=== PATIENT | female | born 2000 | race American Indian/Alaskan Native ===

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

== ENCOUNTER 2021-02-10 21:04 | Emergency (ER) | payer MEDICAID, SELFPAY ==
[2021-02-10 21:10] VITALS: BP 117/58; PULSE 78; RESP 20; TEMP 36.3; O2SAT 97
--- NOTE | 2021-02-10 21:15 | DI.RAD.S_ITS ---
PROCEDURE: XR CHEST 2V INDICATIONS: chest pain, short of breath TECHNIQUE: 2 views of the chest were acquired. COMPARISON: [facility], , CHEST 2 VIEW, 12/30/2014, 20:55. FINDINGS: Surgical changes and devices: None. Lungs and pleura: Lungs are clear. No pleural effusions or pneumothorax. Mediastinum: Mediastinal contours are normal. Heart size is normal. Bones and chest wall: No suspicious bony abnormalities. Soft tissues appear unremarkable. IMPRESSION: No acute cardiopulmonary abnormality. Dictated by: Walter Weinstein M.D. on 02/10/2021 at 21:51 Approved by: Walter Weinstein M.D. on 02/10/2021 at 21:51
[2021-02-10 22:43] LABS: D Dimer 231 ng/mL (<230)
[2021-02-10 22:44] LABS: BUN Creatinine Ratio 16.4 (6-22); Blood Urea Nitrogen 11 mg/dL (7-17); Calcium 8.7 mg/dL (8.4-10.2); Carbon Dioxide 27 mmol/L (22-32); Chloride 104 mmol/L (98-107); Estimated Glomerular Filt Rate > 60.0 mL/min (>60); Glucose 99 mg/dL (70-100); HEMOLYSIS < 15 (0-50); Potassium 3.9 mmol/L (3.4-5.1); Sodium 137 mmol/L (137-145)
[2021-02-10 22:47] LABS: Add Manual Diff / Slide Review NO; Basophils Absolute Auto 0 /uL (0-100); Basophils Percent Auto 0.8 % (0-2); Eosinophils Absolute Auto 100 /uL (0-450); Eosinophils Percent Auto 2.1 % (2-4); Hematocrit 29.6 % (36-46); Hemoglobin 9.5 g/dL (12.0-16.0); Lymphocytes Absolute Auto 2100 /uL (1100-4500); Lymphocytes Percent Auto 35.6 % (25-40); Mean Corpuscular HGB Conc 32.2 % (30-36); Mean Corpuscular Hemoglobin 23.4 PG (26-34); Mean Corpuscular Volume 72.8 fL (80-100); Monocytes Absolute Auto 400 /uL (0-900); Monocytes Percent Auto 6.3 % (3-14); Neutrophils Absolute Auto 3200 /uL (1500-7000); Neutrophils Percent Auto 55.2 % (50-75); Platelet Count 432 X10^3/uL (150-400); Red Blood Cell Count 4.07 X10^6/uL (4.0-5.2); Red Cell Distribution Width 16.2 % (11.6-14.8); White Blood Cell Count 5.8 X10^3/uL (4.5-11.0)
[2021-02-10] MEDS: KETOROLAC 60 MG/2 ML VIAL 30 MG IM (23:09)
--- NOTE | 2021-02-10 23:11 | ED.CHESTPAIN ---
HPI - Chest Pain General Chief Complaint: Chest Pain Stated Complaint: right sided pain Time Seen by Provider: 02/10/21 21:12 Source: patient Mode of arrival: Ambulatory Limitations: no limitations History of Present Illness HPI narrative: 20-year-old female smoker with noncontributory medical history otherwise presents with a chief complaint of sharp and stabbing reproducible right-sided chest wall pain that has been present for the past few days. She denies any specific injury or overuse. She denies any cough, fever or chills. She states that she is slightly short of breath but feels like it is only because it hurts to breathe. She does not use control, has no history of blood clot or cancer but did recently travel from here to [place] and back. She denies any abdominal pain, nausea or vomiting. She denies any dysuria, frequency or urgency. She has no vaginal bleeding or discharge MD complaint: chest pain Onset (ago): day(s) Duration: intermittent Pain location: right chest Severity: moderate Quality: sharp Pain radiation: none Relieving factors: rest Exacerbating factors: inspiration Treatments prior to arrival chest pain: none Related Data On Oral Contraceptives: No Previous Rx's Medication Instructions Recorded ketorolac 10 mg PO Q6H PRN #14 tab 02/10/21 Allergies Allergy/AdvReac Type Severity Reaction Status Date / Time No Known Allergies Allergy Uncoded 12/10/19 11:30 Review of Systems Constitutional Constitutional: Denies chills, Denies fatigue, Denies fever(s), Denies frequent falls, Denies lethargy and Denies weakness Eyes Eyes: Denies change in vision, Denies eye discharge, Denies irritation and Denies loss of vision ENT Ears, Nose, Mouth, and Throat: Denies change in voice, Denies dizziness, Denies neck pain, Denies sore throat and Denies throat swelling Cardiovascular Cardiovascular: Reports chest pain, Denies irregular heart rhythm, Denies lightheadedness, Denies palpitations, Denies dyspnea, Denies dyspnea on exertion and Denies orthopnea Respiratory Respiratory: Denies cough, Denies dyspnea, Denies dyspnea on exertion and Denies wheezing Gastrointestinal Gastrointestinal: Denies abdominal pain, Denies change in bowel habits, Denies diarrhea, Denies nausea and Denies vomiting Musculoskeletal Musculoskeletal: Denies neck pain and Denies numbness Integumentary/Breasts Skin/Breast: Denies pruritus, Denies erythema, Denies rash and Denies wounds Neurologic Neurologic: Denies behavioral changes, Denies confusion, Denies dizziness, Denies frequent falls, Denies loss of vision, Denies numbness and Denies weakness Psychiatric Psychiatric: Denies anxiety, Denies behavioral changes, Denies confusion, Denies depression, Denies homicidal ideation and Denies suicidal ideation Endocrine Endocrine: Denies fatigue, Denies flushing and Denies palpitations Hematologic/Lymphatic Hematologic/Lymphatic: Denies easy bruising Allergic/Immunologic Allergic/Immunologic: Denies urticaria, Denies throat swelling and Denies wheezing Patient History Medical History Anemia Chlamydia Healthy child HSV-1 infection Family History Grandmother Type 2 diabetes mellitus Social History Smoking Status: Never smoker substance use type: former substance user Smoking Status: Never smoker Substance Use Type: does not use Exam Narrative Exam Narrative: GENERAL: [20] year old patient appears stated age. Well-nourished, well-developed patient, in mild distress. HEAD: Atraumatic. Normocephalic. EYES: Pupils equal round and reactive. Extraocular motions intact. No scleral icterus. No injection or drainage. ENT: Nose without bleeding, purulent drainage. Throat without erythema, tonsillar hypertrophy or exudate. Airway patent. NECK: Trachea midline. Non tender CARDIOVASCULAR: Regular rate and rhythm without murmurs, gallops, or rubs. Right lateral ribs tender to palpation, no subcu emphysema or crepitance RESPIRATORY: Clear to auscultation. Breath sounds equal bilaterally. No wheezes, rales, or rhonchi. GASTROINTESTINAL: Abdomen soft, non-tender, nondistended. EXTREMITIES: No edema or joint tenderness. BACK: Nontender without deformity or crepitance. No flank tenderness. No CVA tenderness NEURO: AOx3. SKIN: No rash or erythema of visible areas Initial Vital Signs Initial Vital Signs: Vital Signs Temperature 97.4 F L 02/10/21 21:10 Pulse Rate 78 02/10/21 21:10 Respiratory Rate 20 02/10/21 21:10 Blood Pressure 117/58 L 02/10/21 21:10 Pulse Oximetry 97 02/10/21 21:10 Course Orders Ordered: ED Orders 02/10/21 22:25 Basic Metabolic Panel Stat Complete Blood Count AUTO DIFF Stat D Dimer Stat Discontinued Medications Ketorolac Tromethamine (Ketorolac 60 Mg/2 Ml Vial) 30 mg IM NOW ONE Stop: 02/10/21 23:04 Last Admin: 02/10/21 23:09 Dose: 30 mg Documented by: LAWRENCE Vital Signs Vital signs: Vital Signs - 8 hr 02/10/21 21:10 Temperature 97.4 F L Pulse Rate 78 Respiratory Rate 20 Blood Pressure 117/58 L Pulse Oximetry 97 MDM - Chest Pain Lab Data Result diagrams: 02/10/21 22:25 02/10/21 22:25 Labs: Lab Results 02/10/21 02/10/21 02/10/21 Range/Units 22:25 22:25 22:25 WBC 5.8 (4.5-11.0) X10^3/uL RBC 4.07 (4.0-5.2) X10^6/uL Hgb 9.5 L (12.0-16.0) g/dL Hct 29.6 L (36-46) % MCV 72.8 L (80-100) fL MCH 23.4 L (26-34) PG MCHC 32.2 (30-36) % RDW 16.2 H (11.6-14.8) % Plt Count 432 H (150-400) X10^3/uL Neut % (Auto) 55.2 (50-75) % Lymph % (Auto) 35.6 (25-40) % [place] % (Auto) 6.3 (3-14) % Eos % (Auto) 2.1 (2-4) % Baso % (Auto) 0.8 (0-2) % Neut # (Auto) 3200 (6585-8939) /uL Lymph # (Auto) 2100 (4755-3914) /uL [place] # (Auto) 400 (0-900) /uL Eos # (Auto) 100 (0-450) /uL Baso # (Auto) 0 (0-100) /uL D-Dimer 231 H (<230) ng/mL Sodium 137 (137-145) mmol/L Potassium 3.9 (3.4-5.1) mmol/L Chloride 104 (98-107) mmol/L Carbon Dioxide 27 (22-32) mmol/L BUN 11 (7-17) mg/dL Creatinine 0.67 (0.52-1.04) mg/dL Estimated GFR > 60.0 (>60) mL/min BUN/Creatinine Ratio 16.4 (6-22) Glucose 99 (70-100) mg/dL Calcium 8.7 (8.4-10.2) mg/dL Point of Care Testing Test Results Negative Urine Dip Bedside Urine Glucose Negative Bedside Urine Bilirubin - Negative Bedside Urine Ketone - Negative Urine Specific [place] 1.030 Bedside Urine Occult Blood - Negative Bedside Urine pH 6 Bedside Urine Protein - Negative Bedside Urine Urobilinogen - Negative Bedside Urine Nitrite - Negative Bedside Urine Leukocytes - Negative Esterase Imaging Data Chest x-ray: Radiologist's Impression: Kimberli Easley 20 F [address] [id number] ReportSigned Patient: Kimberli Easley AMR#: [id number]: 2000Acct:[id number]/Sex: 20 / FDate of Service: 02/10/21Loc: EDAccession Number: [id number] Procedure: XR chest 2V Ordering Provider: Bay Brand D.O. PROCEDURE: XR CHEST 2V INDICATIONS: chest pain, short of breath TECHNIQUE: 2 views of the chest were acquired. COMPARISON: [facility], CHEST 2 VIEW, 12/30/2014, 20:55. FINDINGS: Surgical changes and devices: None. Lungs and pleura: Lungs are clear. No pleural effusions or pneumothorax. Mediastinum: Mediastinal contours are normal. Heart size is normal. Bones and chest wall: No suspicious bony abnormalities. Soft tissues appear unremarkable. IMPRESSION: No acute cardiopulmonary abnormality. Dictated by: Walter Weinstein M.D. on 02/10/2021 at 21:51 Approved by: Walter Weinstein M.D. on 02/10/2021 at 21:51 [facility] Narrative Medical decision making narrative: Multiple causes of chest pain considered including [place], PE, pneumothorax, pneumonia, aortic dissection, and pleurisy. Patient reports no radiation, no diaphoresis, no provocation with exertion, and no vomiting. Pulmonary embolism considered given recent travel and history of smoking, however D-dimer is below cutoff and no CTA is indicated. Pain is rather clearly on the ribs but general urinary symptoms such as hydronephrosis, pyelonephritis is considered but thought unlikely given remainder history, physical and labs Patient's symptoms improved over duration of stay with above-stated therapies. Findings and discharge diagnosis discussed with patient/family followed by verbalization of understanding Return precautions discussed with patient/family whom verbalize understanding. Discharge Plan Departure Patient Disposition: Home Clinical Impression: Acute chest wall pain Instructions: DI for Atypical Chest Pain Activity Restrictions/Additional Instructions: *You have been diagnosed with [chest wall pain. Chest x-ray and lab work are very reassuring.] *What to do: *Take medications as directed *Follow up with your primary care provider in 2-3 days, call for an appointment. Let them know you were seen in the Emergency Department and that we ask that you be seen in follow up *Return to ER if you should have any new, worsening or concerning symptoms, such as [increasing pain, shortness of breath, passing out, fever greater than 101 F or other bothersome symptoms] Prescriptions: New ketorolac 10 mg tablet 10 mg PO Q6H PRN (Reason: pain) Qty: 14 RF: 0
== END 2021-02-10 23:21 | disposition home or self-care (01) ==
PROVIDERS: Emergency Provider Emergency Medicine
DX: R07.89 Other chest pain (principal)
CPT/HCPCS: 36415; 71046; 80048; 81003; 81025; 85025; 85379; 96372; 99283; 99284; J1885

== ENCOUNTER 2023-04-20 02:00 | Emergency (ER) | payer MEDICAID, SELFPAY ==
[2023-04-20 02:03] VITALS: BP 109/56; PULSE 80; RESP 16; TEMP 36.8; O2SAT 99; BMI 19.7
--- NOTE | 2023-04-20 02:37 | ED_ITS ---
HPI - Skin/Abscess/Foreign Bdy General Chief complaint: Skin/Abscess/Foreign Body Stated complaint: removed breast piercing now swollen and hurts Time Seen by Provider: 04/20/23 02:36 Source: patient Mode of arrival: Family Vehicle Limitations: no limitations History of Present Illness HPI narrative: This is a 18-year-old female with prior history of drug use who presents with left breast pain, redness and swelling. Patient states she removed her nipple piercings about 2 days ago when she started noticing some redness and irritation. She states it has been increasing and there is now some swelling it is become quite tender. No drainage. She denies fevers or chills. She denies pain elsewhere, no nausea or vomiting, no difficulty breathing. No diarrhea constipation, no urinary symptoms. She states she would 1 prior episode where he got swollen and red she left the piercing in an it resolved without much intervention. Patient states no daily medications. She denies any surgeries. No known drug allergies. She denies any tobacco, alcohol or injectable drug use. Patient defers anything for pain. Related Data Previous Rx's Medication Instructions Recorded ketorolac 10 mg tablet 10 mg PO Q6H PRN pain #14 tabs 02/10/21 sulfamethoxazole 800 1 tab PO Q12H #14 tabs 04/20/23 mg-trimethoprim 160 mg tablet (Bactrim DS) Allergies Allergy/AdvReac Type Severity Reaction Status Date / Time No Known Allergies Allergy Uncoded 12/10/19 11:30 Review of Systems Review of Systems ROS Unobtainable: All systems reviewed & are unremarkable except as noted in HPI and below Patient History Medical History (Updated 04/20/23 @ 03:02 by Blank Gracia DO) Anemia Chlamydia Healthy child HSV-1 infection Family History Grandmother Type 2 diabetes mellitus Social History Smoking Status: Never smoker substance use type: former substance user Smoking Status: Never smoker Substance Use Type: does not use Exam Narrative Exam Narrative: GENERAL: Alert and oriented x three, disheveled female in mild distress. HEENT: Head normocephalic, atraumatic, EOMI, pupils reactive, face symmetric, moist mucous membranes NECK: Supple, full range of motion CARDIOVASCULAR: Regular rate and rhythm without murmurs, rubs or gallops. RESPIRATORY: Breath sounds equal bilaterally, no wheezes rales or rhonchi. ABDOMEN: Soft, nontender. Normoactive bowel sounds all 4 quadrants. No guarding or rebound, rigidity, no mass : No CVA tenderness EXTREMITIES: Normal range of motion, no clubbing or edema. Neurovascularly intact NEUROLOGICAL: Cranial nerves II through XII grossly intact. Moving all extremities SKIN: Warm, dry, no petechiae, patient's left breast has redness, swelling with fluctuance at the 9 o'clock position at the edge of the areola of the left breast. There is warmth as well as tenderness. No induration. No open wounds or drainage appreciated. Erythema is localized to about a 3 cm area. Initial Vital Signs Initial Vital Signs: Vital Signs Temperature 98.3 F 04/20/23 02:03 Pulse Rate 80 04/20/23 02:03 Respiratory Rate 16 04/20/23 02:03 Blood Pressure 109/56 L 04/20/23 02:03 Pulse Oximetry 99 04/20/23 02:03 Oxygen Delivery Method Room Air 04/20/23 02:03 Procedures Abscess I/D I&D #1: Site: other (left breast, lateral to areola at 9:00 a.m. position) Side (if applicable): left Sedation/analgesia: none Local Anesthetic: lidocaine 2% Amount of anesthesia used (mL): 4 Technique: needle aspiration and incised with #11 blade Amount of fluid expressed (mL): 12 Irrigation: Yes Packing used?: none Course Orders Ordered: ED Orders 04/20/23 03:49 Wound Culture and Gram Stain Stat Discontinued Medications Lidocaine HCl (Lidocaine 2% Inj Sdv 5ml) 5 ml INJ INTRA-OP ONE Stop: 04/20/23 02:53 Last Admin: 04/20/23 03:15 Dose: 5 ml Documented By: DESIREE Trimethoprim/Sulfamethoxazole (Trimeth/Sulfa 160/800 (Ds) Tablet) 1 tab PO NOW ONE Stop: 04/20/23 03:03 Last Admin: 04/20/23 03:15 Dose: 1 tab Documented By: DESIREE Vital Signs Vital signs: Vital Signs - 8 hr 04/20/23 02:03 Temperature 98.3 F Pulse Rate 80 Respiratory Rate 16 Blood Pressure 109/56 L Pulse Oximetry 99 Oxygen Delivery Method Room Air MDM - Skin/Abscess/Foreign Bdy MDM Narrative Medical decision making narrative: 23-year-old female with changes consistent with abscess along the edge of the areola of the left breast. Patient has erythema extends onto the skin. She had piercings that she removed 2 days ago redness started just before that. She is been afebrile no changes consistent with sepsis. Bedside ultrasound shows abscess that is about 0.5 cm in depth cm in size consistent with area with fluctuance. Discussed with patient she is not nor had issues with mastitis that she is aware of in the past. She notes 1 prior episode where she had redness, did not remove the piercing in it resolved after several days. Discussed with patient open to bedside ultrasound, incision will be made lateral to the areola over the soft tissue, culture was obtained, plan to start oral antibiotics with strict return precautions if no significant improvement 24 hours. Patient did have improvement of pain after I&D. She notes she has follow-up through the [facility] clinic if needed and discussed if sh e is any trouble with follow-up to just return to the ER. Discharge Plan Departure Patient Disposition: Home Clinical Impression: Abscess of breast Instructions: DI for Skin Abscess Activity Restrictions/Additional Instructions: Take antibiotics until completely gone. Prescription sent to [facility] Wound Care: Keep wound(s) clean and dry. Wash daily with soap and water only. Use on warm compresses 3-4 times daily Do not use over the counter products (alcohol or peroxide)on the wounds unless instructed by a physician, you may use a topical triple antibiotic ointment 3 times daily to the affected area. If wound condition worsens (increased/expanding redness, developing fluid bliste rs, or worsening pain), either contact your doctor for an urgent re-assessment , or return to the Emergency Department. Return to the Emergency Department for any new or worsening symptoms. Return if fever greater than 100.4 Fahrenheit, increased swelling, increasing pain or worsening symptoms such as increased discharge or spreading redness, if you are not having any improvement of your symptoms over the next 24-48 hours or other new or concerning changes. Prescriptions: New sulfamethoxazole-trimethoprim [Bactrim DS] 800-160 mg tablet 1 tab PO Q12H Qty: 14 0RF No Action ketorolac 10 mg tablet 10 mg PO Q6H PRN (Reason: pain) Qty: 14 0RF Stand Alone Forms: Patient Portal/API
[2023-04-20] MEDS: TRIMETH/SULFA 160/800 (DS) TABLET 1 TAB PO (03:15)
[2023-04-20] MEDS: LIDOCAINE 2% INJ SDV 5ML 5 ML INJ (03:15)
== END 2023-04-20 04:17 | disposition home or self-care (01) ==
PROVIDERS: Emergency Provider Emergency Medicine
DX: N61.1 Abscess of the breast and nipple (principal)
CPT/HCPCS: 10060; 87070; 87075; 87205; 99283